=== PATIENT | male | born 1945 | race Caucasian/White ===

== ENCOUNTER 2021-08-02 22:01 | Observation (INO) | payer MEDICARE ==
[2021-08-02 22:23] LABS: #Monocytes 0.1 10x3/uL (0.0-1.1); #Neutrophils 3.8 10x3/uL (1.5-8.4); %Basophils 0.2 % (0.0-2.0); %Eosinophils 0.7 % (0.0-6.0); %Lymphocytes 5.6 % (18.0-47.0); %Monocytes 1.5 % (0.0-10.0); %Neutrophils 91.8 % (40.0-75.0); Hemoglobin 12.9 g/dL (13.5-17.5); Mean Corpuscular HGB CONC 33.4 g/dL (32.0-36.0); Mean Corpuscular Hemoglobin 28.9 pg (27.0-33.0); Mean Corpuscular Volume 86.4 fl (81.2-95.1); Mean Platelet Volume 10.2 fl (7.4-10.4); Platelet Count 102 10x3/uL (150-450); RBC Distribution Width 12.9 % (11.5-14.5); Red Blood Cell (RBC) Count 4.47 10x6/uL (4.32-5.72); White Blood Cell (WBC) Count 4.1 10x3/uL (3.5-10.5)
[2021-08-02 22:37] LABS: ALT (SGPT) 17 U/L (8-55); AST (SGOT) 14 U/L (5-34); Albumin 3.9 g/dL (3.4-4.8); Alkaline Phosphatase 54 U/L (40-110); Anion Gap 14 mmol/L (10-20); BUN (Urea Nitrogen) 15 mg/dL (8.4-25.7); Bilirubin, Total 0.8 mg/dL (0.2-1.2); Calc. Creatinine Clearance 0 mL/min (70-130); Calcium 8.5 mg/dL (7.8-10.44); Carbon Dioxide 22 mmol/L (23-31); Chloride 106 mmol/L (98-107); Globulin 2.7 g/dL (2.4-3.5); Glucose 221 mg/dL (83-110); Lipase 15 U/L (8-78); Potassium 3.8 mmol/L (3.5-5.1); Protein, Total 6.6 g/dL (5.8-8.1); Sodium 138 mmol/L (136-145)
[2021-08-02 23:07] LABS: SARS-CoV-2 NAA Rapid Test DETECTED (NotDetected)
[2021-08-02] MEDS ORDERED: Dexamethasone 10 MG/ML VIAL ONE (23:42)
[2021-08-02 23:52] LABS: Bilirubin Neg (Negative); Blood, Urine 25 (Negative); Clarity Clear (Clear); Glucose, Urine (Dipstick) >=1000 mg/dL (Negative); Ketone, Urine Negative (Negative); Leukocyte Negative (Negative); Nitrite Negative (Negative); Protein, Urine (Dipstick) Negative (Neg-Trace); Urobilinogen Normal mg/dL (Less than 2)
[2021-08-03 00:24] LABS: Bacteria/HPF Rare-Few HPF (None Seen); RBC/HPF 0-3 HPF (0-3); Squamous Epithelial 0-3 HPF (0-3); WBC/HPF None Seen HPF (0-3)
[2021-08-03] MEDS ORDERED: Senokot S 8.6-50 MG TAB PO PRN (01:15)
[2021-08-03] MEDS ORDERED: Ondansetron ODT 4 MG TAB PO PRN (01:15)
[2021-08-03] MEDS ORDERED: NS 0.9% w/ 20 MEQ KCL 1,000 ML/1,000 ML BAG IV SCH (01:15)
[2021-08-03] MEDS ORDERED: Acetaminophen 325 MG TAB PO PRN (01:15)
[2021-08-03] MEDS ORDERED: Ondansetron PF 4 MG/2 ML Vial IVP PRN (01:15)
[2021-08-03] MEDS ORDERED: Dextrose 5% in Water 1,000 ML IV PRN (01:20)
[2021-08-03] MEDS ORDERED: HumaLOG 300 UNITS/3 ML VIAL SC PRN (01:20)
[2021-08-03] MEDS ORDERED: Dextrose 50% Abboject 50 ML SYRINGE SLOW IVP PRN (01:20)
[2021-08-03 01:39] VITALS: BMI 25.1
[2021-08-03 02:35] LABS: Lactic Acid 1.7 mmol/L (0.5-2.2)
[2021-08-03 03:04] LABS: #Monocytes 0.4 10x3/uL (0.0-1.1); #Neutrophils 7.7 10x3/uL (1.5-8.4); %Basophils 0.1 % (0.0-2.0); %Eosinophils 0.1 % (0.0-6.0); %Lymphocytes 3.3 % (18.0-47.0); %Monocytes 4.4 % (0.0-10.0); %Neutrophils 91.6 % (40.0-75.0); Hemoglobin 13.3 g/dL (13.5-17.5); Mean Corpuscular HGB CONC 35.2 g/dL (32.0-36.0); Mean Corpuscular Hemoglobin 30.1 pg (27.0-33.0); Mean Corpuscular Volume 85.5 fl (81.2-95.1); Mean Platelet Volume 10.5 fl (7.4-10.4); Platelet Count 108 10x3/uL (150-450); Red Blood Cell (RBC) Count 4.42 10x6/uL (4.32-5.72); White Blood Cell (WBC) Count 8.4 10x3/uL (3.5-10.5)
[2021-08-03 03:12] LABS: Anion Gap 15 mmol/L (10-20); BUN (Urea Nitrogen) 16 mg/dL (8.4-25.7); Calc. Creatinine Clearance 64 mL/min (70-130); Carbon Dioxide 22 mmol/L (23-31); Chloride 104 mmol/L (98-107); Potassium 3.5 mmol/L (3.5-5.1); Sodium 137 mmol/L (136-145)
[2021-08-03 03:13] LABS: Calcium 8.4 mg/dL (7.8-10.44); Glucose 234 mg/dL (83-110)
[2021-08-03 03:24] LABS: Magnesium 1.4 mg/dL (1.6-2.6)
[2021-08-03] MEDS ORDERED: Glimepiride 2 MG TAB PO SCH (07:30)
[2021-08-03] MEDS ORDERED: metFORMIN 500 MG TAB PO SCH (07:30)
[2021-08-03] MEDS ORDERED: Apixaban 5 MG TAB PO SCH (09:00)
[2021-08-03] MEDS ORDERED: Lisinopril 20 MG TAB PO SCH (09:00)
[2021-08-03] MEDS ORDERED: Enoxaparin Sodium 40 MG/0.4 ML SYRINGE SC SCH (09:00)
[2021-08-03] MEDS ORDERED: Aspirin 81 mg Enteric Coated Tablet PO SCH (09:00)
[2021-08-03 11:01] VITALS: BP 139/48; TEMP 98.2
[2021-08-03] MEDS ORDERED: Finasteride 5 MG TAB PO SCH (21:00)
[2021-08-03] MEDS ORDERED: Atorvastatin Calcium 10 MG TAB PO SCH (21:00)
[2021-08-03] MEDS ORDERED: Terazosin HCl 5 MG CAP PO SCH (21:00)
== END 2021-08-03 12:21 | disposition home or self-care (01) ==
LOC: CSHERS 22:01 → CSHTELE 08-03 00:24
PROVIDERS: ADMIT Family Medicine; ATTEND Internal Medicine
DX: U07.1 COVID-19 (principal); E11.9 Type 2 diabetes mellitus without complications; I10 Essential (primary) hypertension; N40.0 Benign prostatic hyperplasia without lower urinary tract symptoms; K21.9 Gastro-esophageal reflux disease without esophagitis; I48.91 Unspecified atrial fibrillation; Z79.899 Other long term (current) drug therapy; Z79.82 Long term (current) use of aspirin; Z79.84 Long term (current) use of oral hypoglycemic drugs
CPT/HCPCS: 0240U; 71045; 80048; 80053; 81003; 81015; 82962 ×2; 83605 ×2; 83690; 83735; 85025 ×2; 87040; 93005; 96374; 99285; G0378; 36415; 36416; 93010; J1100; J3480

== ENCOUNTER 2022-01-08 19:09 | Emergency (ER) | payer MEDICARE ==
[2022-01-08 21:34] LABS: ALT (SGPT) 16 U/L (8-55); AST (SGOT) 14 U/L (5-34); Albumin 4.1 g/dL (3.4-4.8); Alkaline Phosphatase 55 U/L (40-110); Anion Gap 12 mmol/L (10-20); BUN (Urea Nitrogen) 19 mg/dL (8.4-25.7); Bilirubin, Total 0.5 mg/dL (0.2-1.2); Calc. Creatinine Clearance 0 mL/min (70-130); Carbon Dioxide 24 mmol/L (23-31); Chloride 106 mmol/L (98-107); Globulin 2.6 g/dL (2.4-3.5); Glucose 176 mg/dL (83-110); Magnesium 1.9 mg/dL (1.6-2.6); Platelet Count 133 10x3/uL (150-450); Potassium 4.2 mmol/L (3.5-5.1); Protein, Total 6.7 g/dL (5.8-8.1); Sodium 138 mmol/L (136-145)
[2022-01-08 21:35] LABS: #Eosinphils 0.1 10x3/uL (0.0-0.5); #Monocytes 0.4 10x3/uL (0.0-1.1); #Neutrophils 3.9 10x3/uL (1.5-8.4); %Basophils 0.3 % (0.0-2.0); %Eosinophils 1.5 % (0.0-6.0); %Lymphocytes 23.8 % (18.0-47.0); %Monocytes 7.2 % (0.0-10.0); %Neutrophils 66.9 % (40.0-75.0); Hemoglobin 14.1 g/dL (13.5-17.5); Mean Corpuscular HGB CONC 35.9 g/dL (32.0-36.0); Mean Corpuscular Hemoglobin 29.7 pg (27.0-33.0); Mean Corpuscular Volume 82.7 fl (81.2-95.1); Mean Platelet Volume 10.7 fl (7.4-10.4); RBC Distribution Width 12.2 % (11.5-14.5); Red Blood Cell (RBC) Count 4.75 10x6/uL (4.32-5.72); White Blood Cell (WBC) Count 5.9 10x3/uL (3.5-10.5)
[2022-01-08 21:40] LABS: Troponin I Less than 0.010 ng/mL (< 0.028)
== END 2022-01-08 22:05 | disposition home or self-care (01) ==
LOC: CSHERS 19:09
DX: I48.91 Unspecified atrial fibrillation (principal); E11.9 Type 2 diabetes mellitus without complications; I10 Essential (primary) hypertension; E78.5 Hyperlipidemia, unspecified; K21.9 Gastro-esophageal reflux disease without esophagitis; Z79.899 Other long term (current) drug therapy; Z79.84 Long term (current) use of oral hypoglycemic drugs; Z79.82 Long term (current) use of aspirin; Z79.01 Long term (current) use of anticoagulants
CPT/HCPCS: 71045; 80053; 83735; 84443; 84484; 85025; 93005